=== PATIENT | female | born 1960 | race Caucasian/White ===

== ENCOUNTER → 2024-05-17 13:34 | Outpatient (REF) | payer MEDICARE, OTHER, SELFPAY | LOC: HWWDC 13:34 | PROVIDERS: ATTENDING PHYSICIAN Obstetrics & Gynecology; FAMILY PHYSICIAN Family Medicine | DX: Z12.31 Encounter for screening mammogram for malignant neoplasm of breast (principal) | CPT/HCPCS: 93306 ==

== ENCOUNTER → 2025-01-29 11:15 | Outpatient (REF) | payer MEDICARE, OTHER, SELFPAY | LOC: WDC 11:15 | PROVIDERS: ATTENDING PHYSICIAN Obstetrics & Gynecology; FAMILY PHYSICIAN Family Medicine | DX: R92.2 Inconclusive mammogram (principal) | CPT/HCPCS: 76641 ==